=== PATIENT | male | born 1985 ===

== ENCOUNTER → 2018-06-26 19:20 | Outpatient (REF) | payer BC, SELFPAY ==
[2018-06-26 20:09] LABS: Alanine Aminotransferase 32 IU/L (21-72); Albumin 5.2 g/dL (3.5-5.0); Albumin Globulin Ratio 1.4 (1.0-2.8); Alkaline Phosphatase 107 U/L (38-126); Aspartate Aminotransferase 42 IU/L (17-59); Bilirubin Total 1.4 mg/dL (0.2-1.3); Blood Urea Nitrogen 14 mg/dL (9-20); Calcium 10.2 mg/dL (8.4-10.2); Carbon Dioxide 26 mmol/L (22-32); Chloride 103 mmol/L (98-107); Cholesterol 207 mg/dL (140-199); Estimated Glomerular Filt Rate > 60.0 mL/min (>60); Globulin 3.6 g/dL (1.7-4.1); Glucose 98 mg/dL (70-100); HDL Cholesterol 36 mg/dL (40-60); HEMOLYSIS 48 (0-50); LDL Cholesterol Calculated 111 mg/dL (<100); Potassium 4.6 mmol/L (3.4-5.1); Sodium 140 mmol/L (137-145); Total Protein 8.8 g/dL (6.3-8.2); Triglycerides 299 mg/dL (35-150)
== END ==
LOC: LAB 19:20
PROVIDERS: Visit Provider Family Medicine
DX: Z13.6 Encounter for screening for cardiovascular disorders (principal); Z13.1 Encounter for screening for diabetes mellitus
CPT/HCPCS: 36415; 80053; 80061

== ENCOUNTER → 2018-07-31 20:23 | Outpatient (REF) | payer BC, SELFPAY ==
[2018-07-31 20:44] LABS: Albumin 5.1 g/dL (3.5-5.0); Total Protein 8.3 g/dL (6.3-8.2)
== END ==
LOC: LAB 20:23
PROVIDERS: Visit Provider Family Medicine
DX: R89.9 Unspecified abnormal finding in specimens from other organs, systems and tissues (principal)
CPT/HCPCS: 36415; 82040; 84155